=== PATIENT | female | born 1990 | race Caucasian/White ===

== ENCOUNTER 2016-09-09 22:49 | Outpatient (CLI) | payer BC ==
[~2016-09-09] VITALS: Ht 157.5 cm; Wt 95.8 kg
[~2016-09-09 22:49] MED LIST: PREN-47
[2016-09-09 23:23] VITALS: Ht 157.5 cm; Wt 95.8 kg
[2016-09-10] MEDS ORDERED: ONDANSETRON INJ 8 MG in DEXTROSE 5% 50 ML IV PRN ×2
[2016-09-10] MEDS ORDERED: DEXTROSE 5%-LR 1,000 ML IV PRN
[2016-09-10] MEDS ORDERED: LACTATED RINGER'S 1,000 ML IV ONE
[2016-09-10 00:19] LABS: ADD UMIC YES; URINE BILIRUBIN (Dip) 1+ (NEGATIVE); URINE BLOOD (Dip) NEGATIVE (NEGATIVE); URINE COLOR YELLOW (YELLOW); URINE GLUCOSE (Dip) NEGATIVE (NEGATIVE); URINE KETONES (Dip) TRACE (NEGATIVE); URINE LEUKOCYTE ESTERASE (Dip) NEGATIVE (NEGATIVE); URINE NITRITE (Dip) NEGATIVE (NEGATIVE); URINE TOTAL PROTEIN (Dip) TRACE (NEGATIVE); URINE UROBILINOGEN (Dip) 1.0 E.U./dL (0.1-1.0)
[2016-09-10 01:16] LABS: BACTERIA,URINE MANY; ICTOTEST NEGATIVE (NEGATIVE)
[2016-09-10 01:17] LABS: SQUAMOUS EPITHELIAL CELL,UR MODERATE; URINE RBCS 0-2 /HPF (0)
[2016-09-10 02:04] LABS: BARBITURATES Negative (NEGATIVE); BENZODIAZEPINES Negative (NEGATIVE); CANNABINOIDS Negative (NEGATIVE); COCAINE Negative (NEGATIVE); OPIATES Negative (NEGATIVE)
--- NOTE | 2016-09-10 04:04 | TRIAGE ---
OB Triage Datetime Report Generated by CPN: 09/10/2016 04:04 Datetime: 09/10/2016 03:30 Stage of : OB Triage Datetime: 09/10/2016 03:00 Labor Evaluation Frequency: 4-7 Monitor Mode: External Duration (sec)2399: 40-70 Pattern: Normal: <= 5 Contractions in 10 Minutes Contraction Comments: PT. DECLINES 'FEELING' CONTRACTIONS Heart Rate FHR Baseline Rate: 145 Monitor Mode: External US FHR Baseline Changes: No Baseline Change Variability: Moderate 6-25 bpm Accelerations: 15X15 Datetime: 09/10/2016 02:54 Stage of : OB Triage Datetime: 09/10/2016 02:00 Labor Evaluation Frequency: 3-5 Monitor Mode: External Duration (sec)2399: 40-60 Pattern: Normal: <= 5 Contractions in 10 Minutes Heart Rate FHR Baseline Rate: 145 Monitor Mode: External US FHR Baseline Changes: No Baseline Change Variability: Moderate 6-25 bpm Accelerations: 15X15 Datetime: 09/10/2016 01:00 Labor Evaluation Frequency: 4-5 Monitor Mode: External Duration (sec)2399: 40-70 Pattern: Normal: <= 5 Contractions in 10 Minutes Heart Rate FHR Baseline Rate: 145 Monitor Mode: External US FHR Baseline Changes: No Baseline Change Variability: Moderate 6-25 bpm Accelerations: 15X15 Datetime: 09/10/2016 00:52 Vaginal Exam Dilatation (cms): 0.0 Effacement (%): 0 Station: -3 Exam By: GSTRATTON Vaginal Bleeding: None Cervix, Consistency: Soft Cervix, Position: Posterior Presentation 'A': Cephalic Datetime: 09/10/2016 00:00 Labor Evaluation Frequency: 2-5 Monitor Mode: External Duration (sec)2399: 50-70 Pattern: Normal: <= 5 Contractions in 10 Minutes Heart Rate FHR Baseline Rate: 150 Monitor Mode: External US FHR Baseline Changes: No Baseline Change Variability: Moderate 6-25 bpm Accelerations: 15X15 Datetime: 09/09/2016 23:06 Assessment Type: Triage Time of Arrival: 09/09/2016 22:44 EGA: 36.1 Arrived By: Wheelchair Arrived From: Home Chief Complaint: N/V SINCE 06:30 Movement: Present Contractions: Denies/Absent Rupture of Membranes: Denies Vaginal Bleeding: None Vaginal Discharge: Denies Recent Sexual Intercouse: Denies Abdominal Trauma: Not Applicable Time Provider Notified: 09/10/2016 23:28 Provider Notified: ESHAGHIAN Initial Plan: EFM, CALL OB Maternal Assessment Level of Consciousness: Fully Conscious Headache: Denies Blurred Vision: No Respiratory Effort: Unlabored; Regular Rhythm; Equal Expansion Nausea/Vomiting: Denies RUQ Epigastric Pain: Denies Facial Edema: None Fall Risk Assessment History of Falling: (0) No Secondary Diagnosis: (0) No Ambulatory Aid: (0) Bedrest/Nurse Assist IV Therapy: (0) No Gait: (0) Normal/Bedrest/Immobile Mental Status: (0) Oriented to Own Ability Fall Score: 0 Fall Risk Score Definition: No Risk: No action required Datetime: 09/09/2016 22:57 Stage of : OB Triage Maternal Assessment Level of Consciousness: Fully Conscious Headache: Denies Nausea/Vomiting: Hx of Nausea/Vomiting RUQ Epigastric Pain: Denies Pain Assessment Pain Scale: 2 Pain Presence: Constant Pain Type: Ache Pain Location: Abdomen Pain Assessment Comments: PT. STATES SHE DOESN'T HAVE UNBAREABLE OR NOTICEABLE PAIN, VERY MINIMAL
--- NOTE | 2016-09-10 04:30 | PN ---
Triage Information Date/Time 25-year-old with IUP at 36 weeks and 2 days she is here with complaint of abdominal pain with nausea and vomiting since last Nights. Patient reports episodes of nausea and vomiting at least 7-8 times since last night. She denies any fever or chills. Denies any diarrhea constipation dysuria, leaking of fluid, vaginal bleeding or decreased movement. She denies any sick contacts. She denied eating outside of her house. She denied any other symptoms in her family members or people around. Weeks of Gestation 36 weeks and 2 days : 3 Para: 1 Diabetes: none Hypertention: none Additional information General appearance: Alert and oriented 4. Patient appears to be in moderate distress. Abdomen: Soft, nontender, gravid, fundal height consistent with gestational age. No abdominal tenderness, no guarding, no rigidity, NST: Category 1 Extremities: No calf tenderness, no click no edema UA: Negative Vaginal exam: Closed/long/-3 Contractions initially Q5 to 7 minutes decreased with hydration to every 15 minutes. Patient felt improvement after receiving Zofran and IV hydration Objective Intake and Output 09/09/16 09/09/16 09/10/16 15:00 23:00 07:00 Intake Total 354 ml Balance 354 ml Results/Medications Results 24 hrs Laboratory Tests Test 09/09/16 22:45 Urine Color YELLOW Urine Clarity CLEAR Urine pH 8.0 Urine Specific [place] 1.015 Urine Ketones TRACE H Urine Nitrite NEGATIVE Urine Bilirubin 1+ H Urine Ictotest NEGATIVE Urine Urobilinogen 1.0 E.U./dL Urine Leukocyte Esterase NEGATIVE Urine Microscopic RBC 0-2 Urine Microscopic WBC 2-5 Urine Squamous Epithelial Cells MODERATE Urine Bacteria MANY Urine Hemoglobin NEGATIVE Urine Glucose NEGATIVE Urine Total Protein TRACE Urine Opiates Screen Negative Urine Barbiturates Negative Urine Amphetamines Screen Negative Urine Benzodiazepines Screen Negative Urine Cocaine Screen Negative Urine Cannabinoids Negative Assessment/Plan IUP at 36 weeks and 2 days No evidence of labor Nausea and vomiting and abdominal pain, likely viral gastroenteritis False labor pain due to dehydration resolved after IV hydration Patient felt significant improvement after she received IV hydration and Zofran. We will be discharged home with Zofran 4 times daily as needed. Small portions with small hydration each time throughout the day discussed. RT to triage if she has worsening of the symptoms, decreased movement, fever, chills, diarrhea, increased abdominal pain, uterine contractions or any other concerns. Follow-up with her primary OB office in 2 3 days after discharge recommended. Patient verbalized understanding. FAWAD HOWELL MD Sep 10, 2016 04:30 IMPRESSION: 1. No intrauterine gestational sac. If the patient has a positive test, ectopic gestation cannot be excluded. 2. Otherwise unremarkable study. Assessment/Plan IUP at 36 weeks and 2 days No evidence of labor Nausea and vomiting and abdominal pain, likely viral gastroenteritis False labor pain due to dehydration resolved after IV hydration Patient felt significant improvement after she received IV hydration and Zofran. We will be discharged home with Zofran 4 times daily as needed. Small portions with small hydration each time throughout the day discussed. RT to triage if she has worsening of the symptoms, decreased movement, fever, chills, diarrhea, increased abdominal pain, uterine contractions or any other concerns. Follow-up with her primary OB office in 2 3 days after discharge recommended. Patient verbalized understanding. FAWAD HOWELL MD Sep 10, 2016 04:30
== END 2016-09-10 03:30 | disposition home or self-care (01) ==
LOC: OBT 22:49 → L-D 22:49 → OBT 09-10 03:30
PROVIDERS: ATTEND Obstetrics & Gynecology
DX: O47.03 False labor before 37 completed weeks of gestation, third trimester (principal); E86.0 Dehydration; O21.2 Late vomiting of pregnancy; Z3A.36 36 weeks gestation of pregnancy
CPT/HCPCS: 36415; 80307; 81001; 87086; 96360; 96361; 96365; 96368; J2405; J7120; Z7500; Z7610; G0463

== ENCOUNTER 2016-10-05 11:00 | Inpatient (IN) | payer BC ==
[~2016-10-05] VITALS: Ht 157.5 cm; Wt 94.9 kg
[2016-10-05] MEDS ORDERED: MISOPROSTOL 200 MCG TAB PR PRN ×2 (12:30→22:30)
[2016-10-05] MEDS ORDERED: IBUPROFEN 600 MG TAB PO PRN (12:30)
[2016-10-05] MEDS ORDERED: BUTORPHANOL 2 MG INJ IV PRN (12:30)
[2016-10-05] MEDS ORDERED: LACTATED RINGER'S 1,000 ML IV PRN (12:30)
[2016-10-05] MEDS ORDERED: OXYTOCIN 30 UNITS/LR 500 ML IV SCH ×3 (12:30)
[2016-10-05] MEDS ORDERED: LIDOCAINE 1% (MPF) 30 ML INJ INJ PRN (12:30)
[2016-10-05] MEDS ORDERED: CARBOPROST 250 MCG INJ IM PRN ×2 (12:30→22:30)
[2016-10-05] MEDS ORDERED: METHYLERGONOVINE 0.2 MG INJ IM PRN ×2 (12:30→22:30)
[2016-10-05] MEDS ORDERED: OXYTOCIN 30 UNITS/LR 500 ML IV PRN ×2 (12:30→22:30)
[2016-10-05 12:35] LABS: ADD SCAN DIFF NO
[2016-10-05 12:37] LABS: MEAN PLATELET VOLUME 11.2 fl (7.4-10.4); RED CELL DISTRIBUTION WIDTH 13.1 % (11.5-14.5)
[2016-10-05 12:44] LABS: BASOPHILS % 0.4 % (0.0-2.0); EOSINOPHILS % 0.4 % (0.0-7.0); HEMATOCRIT 36.9 % (37.0-47.0); HEMOGLOBIN 12.1 g/dl (12.0-16.0); LYMPHOCYTES % 20.2 % (15.0-51.0); MEAN CORPUSCULAR HEMOGLOBIN 26.6 pg (29.0-33.0); MEAN CORPUSCULAR HGB CONC 32.8 g/dl (32.0-37.0); MEAN CORPUSCULAR VOLUME 81.1 fl (82.0-101.0); MONOCYTE # 0.6 10^3/ul (0.3-0.9); MONOCYTES % 6.2 % (0.0-11.0); NEUTROPHILS % 72.2 % (39.0-77.0); PLATELET COUNT 314 10^3/UL (140-415); RED BLOOD COUNT 4.55 10^6/ul (4.20-5.40); WHITE BLOOD COUNT 9.6 10^3/ul (4.8-10.8)
[2016-10-05 12:46] LABS: INR 0.88; PROTIME 11.9 Sec (12.2-14.2); PT RATIO 0.9
[2016-10-05 12:47] LABS: PARTIAL THROMBOPLASTIN TIME 28.2 Sec (25.0-35.0)
[2016-10-05] MEDS: LACTATED RINGER'S 1,000 ML IV SCH ×2 (13:15→20:26)
--- NOTE | 2016-10-05 14:11 | RADRPT ---
PROCEDURE: US OB. CLINICAL INDICATION: Uncertain size and dates. Labor induction. TECHNIQUE: Multiple sonographic images of the uterus were obtained. The images were revi ewed on a PACS workstation. COMPARISON: No prior studies are available for comparison. FINDINGS: There is a single live intrauterine gestation. heart rate is 134 beats per minute. Measurements were made in order to determine age. The results are as follows: BPD = 9.12 cm. HC = 34.42 cm. AC = 35.91 cm. FL = 7.69 cm. Estimated weight is 3753 +/- 563 grams. LMP growth percentile is 64%. Menstrual age by ultrasound dates is 39 weeks 0 days. The estimated date of delivery is 10/12/2016. Position is cephalic and placenta is anterior grade 1. There is no evidence for an abruption or plac enta previa. IMPRESSION: 1. Single live intrauterine gestation of 39 weeks 0 days menstrual age by ultrasound dates. 2. The estimated date of delivery is 10/12/2016. RPTAT: QQ .Ashok Rico MD, Date Time Electronically viewed and signed by .Ashok Rico MD, on 10/05/2016 14:11 .R/
[2016-10-05 16:28] VITALS: Ht 157.5 cm; Wt 94.9 kg
[2016-10-05 16:29] VITALS: BP 117/78; RESP 18
[2016-10-05] MEDS ORDERED: FENTAnyl 2MCG/ML-ROPIV 0.2% 100 ML ONE (18:40)
[2016-10-05] MEDS: LACTATED RINGER'S 1,000 ML IV* SCH (22:17)
[2016-10-05] MEDS ORDERED: MISOPROSTOL 200 MCG TAB PO STA (22:21)
[2016-10-05] MEDS ORDERED: SENNA/DOCUSATE NA (8.6MG/50MG) TAB PO PRN (22:30)
[2016-10-05] MEDS ORDERED: ONDANSETRON 4 MG TAB PO PRN (22:30)
[2016-10-05] MEDS ORDERED: ACETAMINOPHEN 325 MG TAB PO PRN (22:30)
[2016-10-05] MEDS ORDERED: BENZOCAINE 20% 56 ML SPRAY TOP PRN (22:30)
[2016-10-05] MEDS ORDERED: DIPHENHYDRAMINE 25 MG CAP PO PRN (22:30)
[2016-10-05] MEDS ORDERED: LANOLIN 7 GM TUBE TOP PRN (22:30)
[2016-10-05] MEDS ORDERED: WITCH HAZEL/GLYCERIN PAD PR PRN (22:30)
[2016-10-05] MEDS ORDERED: MEPERIDINE 50 MG INJ IV ONE (22:30)
[2016-10-05] MEDS ORDERED: ONDANSETRON 4 MG INJ IV PRN ×2 (22:30→23:00)
[2016-10-05] MEDS ORDERED: EPHEDrine SULFATE 50 MG/5 ML SYG IV PRN (23:00)
[2016-10-05] MEDS ORDERED: NALOXONE (0.4 MG/ML) INJ IV PRN (23:00)
[2016-10-05] MEDS ORDERED: FENTAnyl 2MCG/ML-ROPIV 0.2% 100 ML BAG EPI SCH (23:00)
--- NOTE | 2016-10-05 23:21 | LDN ---
Date/Time of Note Date/Time of Note DATE: 10/05/16 TIME: 23:15 Delivery Summary A viable female spontaneous vaginal delivery 9/9 respectively one and five minutes wait pending placenta via CCT intact 1st vaginal laceration repair 4-0 monocryl anesthesia epidural complications none Weeks of Gestation 39 Placenta Delivered: Spontaneously Meconium: none Episiotomy: No Laceration repair: 1st vaginal laceration repair Anesthesia type: Epidural Sponge & Needle done & correct: Yes All needle counts correct: Yes Any foreign bodies felt in the: No Problems: Delivery Information Sex Infant Sex: female Apgars 1 Minute: 9 5 Minute: 9 10 Minute: 9 Suctioning Nose & mouth suctioned at [place]: No Delee suction performed: No Umbilical Cord Umbilical cord with: 3 Vessels Cord presentations: no nuchal cord Cord Blood was obtained: Yes DIONI AKBAR MD Oct 05, 2016 23:21
[2016-10-06 00:30] VITALS: BP 121/70; PULSE 78; RESP 18
[2016-10-06] MEDS: LACTATED RINGER'S 1,000 ML IV* SCH (02:50)
[2016-10-06] MEDS: IBUPROFEN 600 MG TAB PO SCH ×6 (03:48→23:31)
[2016-10-06 04:00] VITALS: BP 109/74; PULSE 70; RESP 18
[2016-10-06 06:56] LABS: ADD SCAN DIFF NO
[2016-10-06 07:06] LABS: BASOPHIL # 0.1 10^3/ul (0.0-0.1); BASOPHILS % 0.4 % (0.0-2.0); EOSINOPHILS % 0.3 % (0.0-7.0); HEMATOCRIT 32.3 % (37.0-47.0); HEMOGLOBIN 10.8 g/dl (12.0-16.0); LYMPHOCYTES # 3.3 10^3/ul (0.8-2.9); LYMPHOCYTES % 23.7 % (15.0-51.0); MEAN CORPUSCULAR HEMOGLOBIN 27.1 pg (29.0-33.0); MEAN CORPUSCULAR HGB CONC 33.4 g/dl (32.0-37.0); MEAN CORPUSCULAR VOLUME 81.2 fl (82.0-101.0); MEAN PLATELET VOLUME 10.7 fl (7.4-10.4); MONOCYTE # 0.9 10^3/ul (0.3-0.9); MONOCYTES % 6.2 % (0.0-11.0); NEUTROPHIL # 9.6 10^3/ul (1.6-7.5); NEUTROPHILS % 68.9 % (39.0-77.0); PLATELET COUNT 259 10^3/UL (140-415); RED BLOOD COUNT 3.98 10^6/ul (4.20-5.40); RED CELL DISTRIBUTION WIDTH 13.1 % (11.5-14.5); WHITE BLOOD COUNT 13.9 10^3/ul (4.8-10.8)
[2016-10-06 07:50] VITALS: BP 110/61; PULSE 68; RESP 16
[2016-10-06] MEDS: SENNA/DOCUSATE NA (8.6MG/50MG) TAB PO SCH ×2 (08:57→20:40)
[2016-10-06 16:16] VITALS: BP 98/61; PULSE 58; RESP 16
[2016-10-06 20:00] VITALS: BP 108/56; PULSE 63; RESP 20
[2016-10-07 04:00] VITALS: BP 98/67; PULSE 69; RESP 20
[2016-10-07] MEDS: IBUPROFEN 600 MG TAB PO SCH ×2 (05:30→11:20)
[2016-10-07 07:45] VITALS: BP 106/69; PULSE 67; RESP 19
--- NOTE | 2016-10-07 08:23 | PD.PPDC ---
[employer] [employer] [facility] Discharge Instruction Condition Patient Condition: Fair Diet Diet: Resume Regular Diet Activity/Restrictions Restrictions: No Sexual Activity Nothing in the Vagina No [place] No Tampons, douche Follow-up Follow-up with Physician: 3, Week/Weeks Return to clinic for [employer] Instructions: Fever greater than 101 Chills Worsening abdominal pain Excessive Vaginal Bleeding More than 2 pads per hour Unable to tolerate diet OB Instructions: Breast Tenderness Depression Blurried Vision Headache DIONI AKBAR MD Oct 07, 2016 08:23
--- NOTE | 2016-10-07 08:34 | PD.PPDC ---
[facility] Discharge Instruction Condition Patient Condition: Fair Diet Diet: Resume Regular Diet Activity/Restrictions Restrictions: No Sexual Activity Nothing in the Vagina No [place] No Tampons, douche Follow-up Follow-up with Physician: 3, Week/Weeks Return to clinic for [employer] Instructions: Fever greater than 101 Chills Worsening abdominal pain Excessive Vaginal Bleeding More than 2 pads per hour Unable to tolerate diet OB Instructions: Breast Tenderness Depression Blurried Vision Headache DIONI KABAR MD Oct 07, 2016 08:34
[2016-10-07] MEDS: SENNA/DOCUSATE NA (8.6MG/50MG) TAB PO SCH (10:01)
== END 2016-10-07 12:35 | disposition home or self-care (01) | DRG 775 ==
LOC: L-D 11:15 → PP1 10-06 00:32
PROVIDERS: ADMIT Obstetrics & Gynecology; ATTEND Obstetrics & Gynecology
PROC: 0UQGXZZ Repair Vagina, External Approach (ICD-10-PCS; 2016-10-05)
PROC: 3E033VJ Introduction of Other Hormone into Peripheral Vein, Percutaneous Approach (ICD-10-PCS; 2016-10-05)
PROC: 10E0XZZ Delivery of Products of Conception, External Approach (ICD-10-PCS; principal; 2016-10-05 11:00)
DX: O71.4 Obstetric high vaginal laceration alone (principal); Z68.38 Body mass index [BMI] 38.0-38.9, adult; O99.214 Obesity complicating childbirth; Z3A.39 39 weeks gestation of pregnancy; Z37.0 Single live birth
CPT/HCPCS: 62319; 76815; 85025; 85610; 85730; 86592; 86900; 86901; 87340; J2175; J2405; J2590; J3010; J7120